=== PATIENT | male | born 1950 | race Caucasian/White ===

== ENCOUNTER → 2017-02-27 | Outpatient (CLI) | payer OTHER ==
[~2017-02-27] MED LIST: ALBUTEROL17 GM INH; ASPIRIN81 M2 PO; CARVEDILOL25 MG PO; COUMADIN7.5 MG PO; INDOMETHACIN50 MG PO; KLOR-CON PO; LASIX20 MG PO; LOSARTAN POTASS50 MG PO; PRINIVIL40 MG PO; ZYLOPRIM100 MG PO
--- NOTE | ~2017-02-27 | US77 ---
[facility] A Service of [facility] & [facility] RADIOLOGY TEXT RESULTS PATIENT: TAWANA GROVE LOCATION: [facility] : 54 UNIT #: [id number] AGE: [address]: RUMA JEFFRIES APRN SEX: M ORDER DR: [id number] [facility] [address] [place], [place] [address] [id number] O MR#: [id number] Acc #: [id number] NAME: TAWANA GROVE : 1950 SEX: M STUDY DATE/TIME: 02/27/2017 12:42 UNIT: [facility] ROOM: STUDY DESCRIPTION: US Kidney Bilateral Complete Attending Physician: Jeremias Guthrie Referring Physician: Jeremias Guthrie Ordering Physician: Renee Andrade Primary Care Physician: Jeremias Guthrie MEDICAL IMAGING REPORT This report is preliminary unless electronic signature is present EXAM Renal ultrasound 02/27/2017 HISTORY Left renal mass on outside examination, follow up. FINDINGS The patient's reportedly abnormal outside renal ultrasound is not available for comparison. The right kidney measures 11.8 cm while the left kidney measures 11.8 cm in longitudinal dimensions. There is no evidence of hydronephrosis or nephrolithiasis. There is a 3 cm x 2.8 cm x 2.1 cm cyst on the upper pole of the left kidney. No solid mass lesions are identified. There is normal renal cortical echogenicity. Images of the bladder are normal. IMPRESSION 1. 3 cm cyst left kidney. Otherwise negative renal ultrasound. 2. Images of the bladder are normal. Dictated by... Alejandro Meraz M.D. THIS IS AN ELECTRONICALLY VERIFIED REPORT Alejandro Meraz M.D. at 03/01/2017 8:19 AM KRT/to TD: 02/27/2017 17:16 JOB #: [id number] MEDICAL IMAGING REPORT Page 1 of 1 COPY
== END | disposition home or self-care (01) ==
LOC: CGUS 11:52
DX: N28.1 Cyst of kidney, acquired (principal)
CPT/HCPCS: 76770